=== PATIENT | male | born 1995 | race Two or more races ===

== ENCOUNTER 2020-06-01 10:40 | Outpatient (CLI) | payer BC | END 2020-06-01 10:41 | disposition home or self-care (01) | LOC: COV 10:40 | PROVIDERS: ATTEND Family Medicine | DX: R19.7 Diarrhea, unspecified (principal); Z20.828 Contact with and (suspected) exposure to other viral communicable diseases ==

== ENCOUNTER 2022-08-04 19:57 | Outpatient (CLI) | payer OTHER | END 2022-08-04 19:58 | disposition EMS.NT | LOC: EMS 19:57 | DX: L50.9 Urticaria, unspecified (principal) ==